=== PATIENT | female | born 1950 | race Caucasian/White ===

== ENCOUNTER 2018-03-02 14:13 | Emergency (ER) | payer MEDICARE, OTHER ==
[~2018-03-02] VITALS: Ht 160 cm; Wt 72.0 kg
[2018-03-02] MEDS ORDERED: LOSARTAN POT25 MG PO (14:29)
[2018-03-02] MEDS ORDERED: ALLOPURINOL300 MG PO (14:29)
[2018-03-02 15:28] VITALS: BP 139/87
[2018-03-02 15:39] LABS: URINE BILIRUBIN - DIPSTICK NEGATIVE (NEGATIVE); URINE BLOOD DIPSTICK NEGATIVE (NEGATIVE); URINE COLOR YELLOW; URINE GLUCOSE - DIPSTICK NEGATIVE (NEGATIVE); URINE KETONE TRACE mg/dL (NEGATIVE); URINE LEUK ESTERASE NEGATIVE (NEGATIVE); URINE NITRITE - DIPSTICK NEGATIVE (Negative); URINE PH 5.5 (4.5-8.0); URINE PROTEIN - DIPSTICK NEGATIVE (NEG-TRACE); URINE SPECIFIC GRAVITY >=1.030; URINE UROBILINOGEN - DIPSTICK 0.2 E.U./dL (0.2)
[2018-03-02 15:40] LABS: URINE CLARITY CLEAR
== END 2018-03-02 15:50 | disposition home or self-care (01) ==
LOC: ED 14:13
PROVIDERS: Family Medicine
DX: S20.212A Contusion of left front wall of thorax, initial encounter (principal); I10 Essential (primary) hypertension; M10.9 Gout, unspecified; G25.81 Restless legs syndrome; K21.9 Gastro-esophageal reflux disease without esophagitis; W01.198A Fall on same level from slipping, tripping and stumbling with subsequent striking against other object, initial encounter; Y93.K1 Activity, walking an animal; Y92.009 Unspecified place in unspecified non-institutional (private) residence as the place of occurrence of the external cause; Z98.84 Bariatric surgery status

== ENCOUNTER 2018-03-23 08:08 | Observation (INO) | payer MEDICARE, OTHER ==
[~2018-03-23] VITALS: Ht 160 cm; Wt 70.9 kg
[~2018-03-23 08:08] MED LIST: ALLOPURINOL300 MG PO; LOSARTAN POT25 MG PO
--- NOTE | 2018-03-23 08:22 | NUR ---
PT TO ROOM WITH A STEADY GAIT.
[2018-03-23] MEDS ORDERED: OMEPRAZOLE10 MG PO (08:23)
[2018-03-23] MEDS ORDERED: ROPINIROLE0.5 MG PO (08:24)
[2018-03-23] MEDS ORDERED: ADULT ASPIRIN E81 MG PO (08:24)
--- NOTE | 2018-03-23 08:25 | NUR ---
PT HAS BEEN TAKING IMMODIUM EVERY 6 HOURS. LAST DOSE WAS AT 0600 THIS AM.
[2018-03-23 09:13] LABS: HEMATOCRIT 42.6 % (37.0-47.0); HEMOGLOBIN 14.1 g/dl (12.0-16.0); IMMATURE GRANULOCYTES 0.4 % (0.0-5.0); MEAN CELL VOLUME 91.4 fL CALC (80.0-100.0); MEAN CORPUSCULAR HGB 30.3 pG CALC (26.0-32.0); MEAN CORPUSCULAR HGB CONC 33.1 g/L CALC (32.0-36.0); NEUT# 10.26 thou/uL (2.00-7.15); RED BLOOD COUNT 4.66 mill/uL (4.20-5.60)
--- NOTE | 2018-03-23 09:26 | NUR ---
PT WITH HOB ELEVATED, AIRWAY PATENT, RESP EVEN AND NON LABORED, SKIN P/W/D. ABD SOFT, TENDER, BS ACTIVE. IVF INFUSING WITHOUT DIFFICULTY, SITE WITHOUT REDNESS/SWELLING.
[2018-03-23 09:33] LABS: ALKALINE PHOSPHATASE 207 u/l (38-126); ANION GAP 17 (6-22 (CALC)); BILIRUBIN, TOTAL 0.7 mg/dL (0.0-1.4); BUN 20 mg/dL (8-23); BUN/CREATININE RATIO 30 (12-20 (CALC)); CARBON DIOXIDE 24 mmol/l (22-30); CHLORIDE 103 mmol/l (95-108); CREATININE 0.7 mg/dL (0.5-1.0); GFR > 60 ML/MIN (>=60 (CALC)); GFR FOR AFR.AMER. > 60 ML/MIN (>=60 (CALC)); LIPASE 59 u/l (23-300); POTASSIUM 3.8 mmol/l (3.5-5.1); SGOT/AST 31 u/l (9-36); SODIUM 140 mmol/l (137-146); TOTAL PROTEIN 7.2 g/dL (6.3-8.2)
[2018-03-23 10:11] LABS: C. DIFFICILE TOXIN A&B NEGATIVE (NEGATIVE)
--- NOTE | 2018-03-23 10:49 | NUR ---
oob to bsc to attempt to given urine specimen. Gait steady.
[2018-03-23 11:20] LABS: URINE BILIRUBIN - DIPSTICK NEGATIVE (NEGATIVE); URINE BLOOD DIPSTICK NEGATIVE (NEGATIVE); URINE COLOR YELLOW; URINE GLUCOSE - DIPSTICK NEGATIVE (NEGATIVE); URINE KETONE TRACE mg/dL (NEGATIVE); URINE LEUK ESTERASE TRACE (NEGATIVE); URINE PH 5.5 (4.5-8.0); URINE PROTEIN - DIPSTICK NEGATIVE (NEG-TRACE); URINE UROBILINOGEN - DIPSTICK 0.2 E.U./dL (0.2)
[2018-03-23 11:33] LABS: URINE CLARITY CLEAR; URINE NITRITE - DIPSTICK POSITIVE (Negative)
[2018-03-23 11:35] LABS: URINE BACTERIA FEW hpf; URINE HYALINE CAST FEW lpf (NONE-RARE); URINE SQUAMOUS EPITHELIAL CELL MODERATE EPI/hpf (0-FEW)
[2018-03-23 11:36] LABS: URINE MUCUS FEW hpf (NONE-FEW); URINE RBC 0-2 RBC/hpf (0-5)
--- NOTE | 2018-03-23 12:21 | NUR ---
CM discussed the admission status with Dr. Urias and after review of the chart advised observation. voiced agrement.
--- NOTE | 2018-03-23 13:24 | NUR ---
attempted to call report. receiving floor waiting for sbar information. SBAR faxed to floor at this time.
--- NOTE | 2018-03-23 13:46 | NUR ---
Admission Note Report Given to: Maggie HAM Transported by: x Wheelchair Stretcher Transported with: x Nurse Transporter Patent IV O2 Balance Staff Inspector pt leaves er via wc in stable condition.
--- NOTE | 2018-03-23 14:00 | NUR ---
PT ADMITTED TO MED SURG ROOM 269 VIA WHEELCHAIR FROM ER PT IS ALERT AND ORIENTED AND AMBULATES WITH STEADY GAIT, STOOD FROM WHEELCHAIR, ONTON SCALE THEN SITTING ON EDGE OF BED WITH STRONG STEADY GAIT, ADMISSION ASSESSMENT COMPLETED, PT CAM TO ER RELATED TO N/V AND FOUL LOOSE/WATERY YELLO/BENTLEY DIARRHEA SINCE WEDNESDAY, NAUSEA & VOMITING OCCURS WITH DIETARY INTAKE, PT HAS ABOVE DESCRUBED STOOL WITHIN MINUTES OF ARRIVAL TO UNIT (APPROX 75 CC), LUNGS ARE CLEAR ABD SOFT AND NON TENDER TO PALPATION, DENIES ANY PAIN. SKIN WARM DRY AND INTACT WITH NO BREAKDOWN NOTED. PT HAS 20G SALINE LOCK IN LEFT AC, ORIENTED TO ROOM UNIT AND CALL ROQUE SYSTEM WITH RETURN DEMONSTRATION, EDUCATED REGARDING NPO AND PLAN OF CARE, ALL QUESTIONS ANSWERED, SAFETY MEASURES INTRODUCED, CALL ROQUE WITHIN REACH, WILL CONTINUE TO MONITOR.
[2018-03-23 14:27] VITALS: BP 146/85
--- NOTE | 2018-03-23 15:40 | NUR ---
NOTIFIED VIA TELEPHONE OF CONSULT.
[2018-03-23 15:53] VITALS: BP 145/91
--- NOTE | 2018-03-23 16:15 | NUR ---
MEDICTAED WITH IV LOPRESSOR ORDERED MAINTENANCE FOR BP CONTROL, AND IVF STARTED AT PRESCRIBED RATE, CALL ROQUE WITHIN REACH, WILL CONTINUE TO MONITOR.
--- NOTE | 2018-03-23 17:37 | NUR ---
IVF CONTINUE ORDERED, OFFERS NO COMPLAINTS, OF PAIN, NPO STATUS MAINTAINED EXCEPT FEW ICE CHIPS OK PER VERBAL ORDER EARLIER, SAFETY MEASURES REINFORCED, WILL CONTINUE TO MONITOR.
[2018-03-23 17:45] VITALS: BP 127/84
--- NOTE | 2018-03-23 17:45 | NUR ---
REPEAT BP AFTER LOPRESSOR ADMIN 127/84
[2018-03-23 19:00] VITALS: BP 134/74
--- NOTE | 2018-03-23 19:39 | NUR ---
PATIENT RESTING IN BED AT THIS TIME WITH HOB ELEVATED. AWAKE ALERT AND ORIENTEDX3. IV SITE TO LEFT AC INTACT WITH IVF PATENT AND INFUSING AT 100CC/HR. SITE IS HEALTHY AT THIS TIME. PATIENT IS NPO AT THIS TIME. AWAITING SURGICAL CONSULT TOMMORROW. NO COMPLAINTS AT THIS TIME. SAFETY PRECAUTIONS REINFORCED. CALL LIGHT IN REACH. WILL CONT TO MONITOR.
--- NOTE | 2018-03-24 00:37 | NUR ---
APPEARS SLEEPING AT THIS TIME RESTING IN BED WITH EYES CLOSED. IVF PATENT AND INFUSING AT 100CC/HR VIA LEFT AC. CALL LIGHT IN REACH. WILL CONT TO MONITOR.
[2018-03-24 04:00] VITALS: BP 142/72
--- NOTE | 2018-03-24 04:48 | NUR ---
PATIENT RESTING IN BED WITH NO COMPLAINTS AT THIS TIME. REMAINS NPO WITH IVF LR PATENT AND INFUSING VIA LEFT AC AT 100CC/HR. SITE APPEARS HEALTHY AT THIS TIME. TOTAL URINE OUTPUT THIS SHIFT IS 1000CC OF YELLOW URINE. CALL LIGHT IN REACH. WILL CONT TO MONITOR.
[2018-03-24 05:44] LABS: HEMATOCRIT 34.7 % (37.0-47.0); HEMOGLOBIN 11.4 g/dl (12.0-16.0); IMMATURE GRANULOCYTES 0.3 % (0.0-5.0); MEAN CELL VOLUME 92.5 fL CALC (80.0-100.0); MEAN CORPUSCULAR HGB 30.4 pG CALC (26.0-32.0); MEAN CORPUSCULAR HGB CONC 32.9 g/L CALC (32.0-36.0); NEUT# 4.67 thou/uL (2.00-7.15); RED BLOOD COUNT 3.75 mill/uL (4.20-5.60); RED CELL DISTRI WIDTH 14.1 % (11.5-15.5)
[2018-03-24 05:47] LABS: ALKALINE PHOSPHATASE 142 u/l (38-126); ANION GAP 11 (6-22 (CALC)); BILIRUBIN, TOTAL 0.4 mg/dL (0.0-1.4); BUN 12 mg/dL (8-23); BUN/CREATININE RATIO 21 (12-20 (CALC)); CARBON DIOXIDE 26 mmol/l (22-30); CHLORIDE 107 mmol/l (95-108); CREATININE 0.6 mg/dL (0.5-1.0); GFR > 60 ML/MIN (>=60 (CALC)); GFR FOR AFR.AMER. > 60 ML/MIN (>=60 (CALC)); MAGNESIUM 1.1 mg/dL (1.6-2.3); POTASSIUM 3.7 mmol/l (3.5-5.1); SGOT/AST 21 u/l (9-36); SODIUM 141 mmol/l (137-146)
[2018-03-24 05:57] LABS: ALBUMIN 2.5 g/dL (3.2-5.0); TOTAL PROTEIN 5.1 g/dL (6.3-8.2)
--- NOTE | 2018-03-24 07:25 | NUR ---
REPORT RECIEVED FROM FATOUMATA PYLE. PT SITTING UP IN BED. NO S/S OF DISTRESS. PT DENIES ANY NEEDS AT THIS TIME. CALL LIGHT IN REACH. WILL CONTINUE TO MONITOR.
[2018-03-24 08:34] VITALS: BP 130/77
--- NOTE | 2018-03-24 08:34 | NUR ---
PT ASSESSMENT COMPLETE. PT A/O X3. SPEECH IS CLEAR. PT HAS SOME LT SIDED FACIAL DROOPING R/T PREVIOUS BOTOX INJECTIONS. RESP EVEN AND UNLABORED. LUNG SOUNDS CLEAR. LAST BM 03/23/18. BOWEL SOUNDS HYPOACTIVE X4. PT DENIES ANY N/V. STRONG RADIAL AND PEDAL PULSES. #20 LAC LR @100. IV SITE APPEARS HEALTHY. SKIN INTACT. PLAN OF CARE DISCUSSED. SAFETY PRECAUTIONS IN PLACE. CALL LIGHT IN REACH. WILL CONTINUE TO MONITOR.
--- NOTE | 2018-03-24 12:00 | NUR ---
PT SITTING ON SIDE OF BED. NO S/S OF DISTRESS. PT DENIES AND PAIN OR NEEDS AT THIS TIME. SPOUSE AT BEDSIDE. CALL LIGHT IN REACH. WILL CONTINUE TO MONITOR.
[2018-03-24 14:04] VITALS: BP 133/79
--- NOTE | 2018-03-24 16:00 | NUR ---
PT SITTING UP IN BED WATCHING TELEVISION. NO S/S OF DISTRESS. RESP EVEN AND UNLABORED. PT DENIES ANY PAIN OR NEEDS AT THIS TIME. CALL LIGHT IN REACH. WILL CONTINUE TO MONITOR.
[2018-03-24 16:05] VITALS: BP 158/82
[2018-03-24 19:00] VITALS: BP 135/76
--- NOTE | 2018-03-24 19:22 | NUR ---
BEDSIDE REPORT RECEIVED FROM OMKAR. PT IS UPRIGHT IN BED W/FAMILY AT BEDSIDE. DENIES ANY NEEDS AT THIS TIME. WILL FOLLOW-UP WITH ASSESSMENT AND MEDICATIONS ORDERED. CALL LIGHT AT BEDSIDE AND PT ENCOURAGED TO CALL NEEDS ARISE.
[2018-03-24 22:50] VITALS: BP 127/78
--- NOTE | 2018-03-24 23:00 | NUR ---
PT WAS SLEEPING I ENTERED THE ROOM. V/S ASSESSED AND MEDICATIONS ADMINISTERED ORDERED. ABD SOFT AND TENDER TO LOWER RIGHT QUAD., LUNG SOUNDS ARE CLEAR, PT LOCX3, DENIES PAIN/N/V AT THIS TIME. SKIN INTACT, APPEARANCE OF MILD PARALYSIS TO RIGHT SIDE OF FACE REPORTEDLY DUE TO RECENT BOTOX INJECTIONS, ALL OTHER NEURO'S APPEAR TO BE INTACT, NO S/S OF DISTRESS NOTED AT THIS TIME. WILL CONTINUE TO MONITOR. CALL LIGHT AT SIDE AND PT ENCOURAGED TO CALL NEEDS ARISE.
[2018-03-25] VITALS (10 sets, daily range): BP systolic 108–176; BP diastolic 70–83
--- NOTE | 2018-03-25 03:07 | NUR ---
PT IS IN RESTROOM WITH AIDE AT THIS TIME. REPORTING DIAHRREA. PT ASSISTED IN CLEANING UP AND ASSISTED W/MEENU-CARE. PT IS BACK TO BED. DENIES ANY OTHER NEEDS AT THIS TIME. CALL LIGHT W/IN REACH.
--- NOTE | 2018-03-25 05:10 | NUR ---
PT MEDICATED ORDERS PROVIDE AND IV FLUIDS REPLENISHED AT THIS TIME. PT REPORTED LOOSE BM/BROWN SOFT STOOL EMPTIED FROM TOILET. POC DISCUSSED AT LENGTH AT THIS TIME W/PT. PT LEFT SITTING ON SIDE OF BED W/LIGHTS AND TV ON. LAB JUST LEFT PT.
[2018-03-25 05:41] LABS: HEMOGLOBIN 12.2 g/dl (12.0-16.0); IMMATURE GRANULOCYTES 0.2 % (0.0-5.0); MEAN CELL VOLUME 91.6 fL CALC (80.0-100.0); MEAN CORPUSCULAR HGB 30.2 pG CALC (26.0-32.0); NEUT# 7.18 thou/uL (2.00-7.15); RED BLOOD COUNT 4.04 mill/uL (4.20-5.60); RED CELL DISTRI WIDTH 13.7 % (11.5-15.5)
[2018-03-25 06:01] LABS: ALBUMIN 2.9 g/dL (3.2-5.0); ALKALINE PHOSPHATASE 155 u/l (38-126); ANION GAP 12 (6-22 (CALC)); BILIRUBIN, TOTAL 0.4 mg/dL (0.0-1.4); BUN 8 mg/dL (8-23); BUN/CREATININE RATIO 15 (12-20 (CALC)); CARBON DIOXIDE 28 mmol/l (22-30); CHLORIDE 104 mmol/l (95-108); CREATININE 0.6 mg/dL (0.5-1.0); GFR > 60 ML/MIN (>=60 (CALC)); GFR FOR AFR.AMER. > 60 ML/MIN (>=60 (CALC)); POTASSIUM 3.7 mmol/l (3.5-5.1); SGOT/AST 26 u/l (9-36); SODIUM 139 mmol/l (137-146); TOTAL PROTEIN 5.7 g/dL (6.3-8.2)
[2018-03-25 06:02] LABS: MAGNESIUM 1.6 mg/dL (1.6-2.3)
--- NOTE | 2018-03-25 06:05 | NUR ---
PT OFF UNIT FLOOR ACCOMPANIED BY OR NURSE
--- NOTE | 2018-03-25 06:30 | NUR ---
PT RETURNED TO FLOOR IN STABLE CONDITION FROM CT.
--- NOTE | 2018-03-25 07:30 | NUR ---
REPORT RECEIVED, PT IN SURGERY FOR LAP MICHELLE WITH .
--- NOTE | 2018-03-25 10:30 | NUR ---
PT ARRIVED TO [facility]2 VIA STRETCHER ACCOMPANIED BY OR NURSE ZAHIRA. PT ALERT AND ORIENTED X3, VERY DROWSY, PT ABLE TO TRANSFER SELF FROM STRETCHER TO BED. DISCUSSED POC, SCD PLACED ON PT. IS AT BEDSIDE. DYNAMAP ATTATCHED TO PT FOR POST OP VITALS. X4 DRESSING TO ABD, SHADOWING NOTED TO UPPERMOST DRESSING, CDIX3. ASSESSMENT COMPLETED. CALL LIGHT IN REACH,CONTINUE TO MONITOR.
--- NOTE | 2018-03-25 12:00 | NUR ---
PT RESTING IN BED, MAUREEN CORRALES. PT C/O PAIN 03/23. PT MEDICATED PER AUG. TOLERATED WELL. CALL LIGHT IN REACH,CONTINUE TO MONITOR.
--- NOTE | 2018-03-25 16:00 | NUR ---
PT C/O PAIN MEDICATED PER AUG. CALL LIGHT IN REACH,CONTINUE TO MONITOR.
--- NOTE | 2018-03-25 20:00 | NUR ---
REPORT GIVEN BY LINO MONTEMAYOR. PATIENT ALERT AND AWAKE WATCHING TV. NO C/O OF PAIN AT THIS TIME. FALL PRECAUTIONS IN PLACE, PLAN OF CARE DISCUSSED, AND PATIENT INFORMED TO CALL WITH ANY QUESTIONS OR CONCERNS. RESP EVEN AND UNLABORED. NO S/S OF DISTRESS NOTED.
--- NOTE | 2018-03-25 23:40 | NUR ---
OLD IV SITE LEAKING. NEW IV STARTED 20 R FA.
--- NOTE | 2018-03-26 03:59 | NUR ---
PATIENT WALKED UP AND DOWN THE HALLWAYS DURING THE NIGHT. PATIENT TOLERATED THE WALKING WELL. PATIENT IS CURRENTLY IN THE BEDSIDE RECLINER WATCHING TV. RESP EVEN AND UNLABORED. NO S/S OF DISTRESS NOTED.
[2018-03-26 05:08] VITALS: BP 144/75
--- NOTE | 2018-03-26 07:30 | NUR ---
PT RESTING IN BED, STATING SHE SLEPT A LITTLE BUT NOT MUCH LAST PM, AM ASSESSMENT COMPLETED SEE INTERVENTIONS; SKIN WARN DRY AND INTACT; WITH DRESSINGS TO MTUIPLE SMALL ABD INCISIONS CLEAN DRY AND INTACT WITH NO SCANT NOTED, BS ACTIVE STATES PAIN CONTROLLED TODAY, 20G IV ACCESS INTACT IN R FA WITH IVF INFUSING AT PRESCRIBED RATE, SAFETY MEASURES REINFORCED CALL ROQUE WITHIN REACH, WILL CONTINUE TO MONITOR.
[2018-03-26 07:45] VITALS: BP 167/72
[2018-03-26 09:06] VITALS: BP 167/72
[2018-03-26 09:55] LABS: HEMATOCRIT 36.9 % (37.0-47.0); HEMOGLOBIN 12.1 g/dl (12.0-16.0); MEAN CELL VOLUME 91.3 fL CALC (80.0-100.0); MEAN CORPUSCULAR HGB CONC 32.8 g/L CALC (32.0-36.0); RED BLOOD COUNT 4.04 mill/uL (4.20-5.60)
[2018-03-26 10:03] LABS: ANION GAP 15 (6-22 (CALC)); BUN 12 mg/dL (8-23); BUN/CREATININE RATIO 19 (12-20 (CALC)); CARBON DIOXIDE 25 mmol/l (22-30); CHLORIDE 102 mmol/l (95-108); CREATININE 0.6 mg/dL (0.5-1.0); GFR > 60 ML/MIN (>=60 (CALC)); GFR FOR AFR.AMER. > 60 ML/MIN (>=60 (CALC)); POTASSIUM 4.4 mmol/l (3.5-5.1); SODIUM 137 mmol/l (137-146)
--- NOTE | 2018-03-26 10:04 | NUR ---
PT RESTING, IVF STOPPED PER VERBAL ORDER RAUL AT BEDSIDE PLANNED D/C LATER TODAY IF TOLERATING DIET WELL, OFFERS NO NEW COMPLAINTS, CALL ROQUE WITHIN REACH. WILL CONTINUE TO MONITOR.
--- NOTE | 2018-03-26 10:08 | NUR ---
AMBULATING IN HALLWAYS WITH STEADY GAIT. REQUESTING PAIN MEDICATION, WILL MEDICATE ORDERED.
--- NOTE | 2018-03-26 11:58 | NUR ---
AND RAUL FIGUEROA INTO SEE PATIENT, PLAN OF CARE DISCUSSED, CALL JUDE CASAS
[2018-03-26] MEDS ORDERED: LORTAB 1010 MG PO (12:15)
[2018-03-26] MEDS ORDERED: CIPRO XR500 MG PO (12:15)
--- NOTE | 2018-03-26 13:00 | NUR ---
PT MEDICATED FOR PAIN ORDERED, PLANNED D/C TODAY DAUGHTER AT BEDSIDE
--- NOTE | 2018-03-26 13:15 | NUR ---
Discharge instructions given. Patient verbalizes understanding of same. Discharged in stable condition via Wheelchair to Home with family. All belongings sent with pt. SCRIPTS FOR [facility] AND CIPRO SENT WITH PATIENT WELL
== END 2018-03-26 13:15 | disposition home or self-care (01) ==
LOC: ED 08:08 → ED-I 12:11 → ED 13:00 → MS2 13:01
PROVIDERS: Emergency Medicine; Nurse Practitioner Family; ADMIT Internal Medicine Nephrology; ATTEND Internal Medicine Nephrology
PROC: 0FT44ZZ Resection of Gallbladder, Percutaneous Endoscopic Approach (ICD-10-PCS; principal; 2018-03-25)
DX: K80.12 Calculus of gallbladder with acute and chronic cholecystitis without obstruction (principal); N39.0 Urinary tract infection, site not specified; I10 Essential (primary) hypertension; M10.9 Gout, unspecified; G25.81 Restless legs syndrome; K21.9 Gastro-esophageal reflux disease without esophagitis; K76.0 Fatty (change of) liver, not elsewhere classified; R19.7 Diarrhea, unspecified; E83.42 Hypomagnesemia; B96.20 Unspecified Escherichia coli [E. coli] as the cause of diseases classified elsewhere; Z91.041 Radiographic dye allergy status; Z98.84 Bariatric surgery status
CPT/HCPCS: Q9967; S0164

== ENCOUNTER → 2018-08-03 | Outpatient (REF) | payer MEDICARE, OTHER ==
[~2018-08-03] MED LIST changes: +ADULT ASPIRIN E81 MG PO; +CIPRO XR500 MG PO; +LORTAB 1010 MG PO; +OMEPRAZOLE10 MG PO; +ROPINIROLE0.5 MG PO
[2018-08-03 11:06] LABS: C. DIFFICILE TOXIN A&B NEGATIVE (NEGATIVE)
== END | disposition home or self-care (01) ==
LOC: LABSPEC 10:09
PROVIDERS: ATTEND Nurse Practitioner
DX: R19.7 Diarrhea, unspecified (principal)

== ENCOUNTER 2019-07-02 | Emergency (ER) | payer MEDICARE, OTHER ==
[2019-07-02 14:34] LABS: HEMATOCRIT 39.4 % (37.0-47.0); HEMOGLOBIN 12.5 g/dl (12.0-16.0); IMMATURE GRANULOCYTES 0.4 % (0.0-5.0); MEAN CELL VOLUME 92.9 fL CALC (80.0-100.0); MEAN CORPUSCULAR HGB 29.5 pG CALC (26.0-32.0); MEAN CORPUSCULAR HGB CONC 31.7 g/L CALC (32.0-36.0); NEUT# 9.33 thou/uL (2.00-7.15); RED BLOOD COUNT 4.24 mill/uL (4.20-5.60); RED CELL DISTRI WIDTH 14.2 % (11.5-15.5)
[2019-07-02 14:44] LABS: ANION GAP 13 (6-22 (CALC)); BUN 20 mg/dL (8-23); BUN/CREATININE RATIO 32 (12-20 (CALC)); CARBON DIOXIDE 24 mmol/l (22-30); CHLORIDE 102 mmol/l (95-108); CREATININE 0.6 mg/dL (0.5-1.0); GFR > 60 ML/MIN (>=60 (CALC)); GFR FOR AFR.AMER. > 60 ML/MIN (>=60 (CALC)); POTASSIUM 3.6 mmol/l (3.5-5.1); SODIUM 136 mmol/l (137-146)
[2019-07-02] MEDS ORDERED: CYCLOBENZAPR5 MG PO (14:55)
== END 2019-07-02 15:00 | disposition home or self-care (01) ==
PROVIDERS: Family Medicine
DX: R25.2 Cramp and spasm (principal); I10 Essential (primary) hypertension; G25.81 Restless legs syndrome; G51.39 Clonic hemifacial spasm, unspecified

== ENCOUNTER 2020-10-29 22:31 | Emergency (ER) | payer MEDICARE, OTHER ==
[~2020-10-29] VITALS: Ht 160 cm; Wt 66.0 kg
[~2020-10-29 22:31] MED LIST changes: +CYCLOBENZAPR5 MG PO
[2020-10-30] LABS: HEMATOCRIT 42.2 % (37.0-47.0); HEMOGLOBIN 13.2 g/dl (12.0-16.0); IMMATURE GRANULOCYTES 0.5 % (0.0-5.0); MEAN CELL VOLUME 91.9 fL CALC (80.0-100.0); MEAN CORPUSCULAR HGB 28.8 pG CALC (26.0-32.0); MEAN CORPUSCULAR HGB CONC 31.3 g/dL CAL (32.0-36.0); NEUT# 14.68 thou/uL (2.00-7.15); RED BLOOD COUNT 4.59 mill/uL (4.20-5.60); RED CELL DISTRI WIDTH 13.9 % (11.5-15.5)
[2020-10-30 00:23] LABS: ALKALINE PHOSPHATASE 155 u/l (38-126); AMYLASE 79 u/l (30-110); ANION GAP 13 (6-22 (CALC)); BUN 17 mg/dL (8-23); BUN/CREATININE RATIO 14 (12-20 (CALC)); CARBON DIOXIDE 25 mmol/l (22-30); CHLORIDE 105 mmol/l (95-108); CREATININE 1.2 mg/dL (0.5-1.0); GFR 44 ML/MIN (>=60 (CALC)); GFR FOR AFR.AMER. 54 ML/MIN (>=60 (CALC)); LIPASE 108 u/l (23-300); POTASSIUM 4.3 mmol/l (3.5-5.1); SGOT/AST 27 u/l (9-36); SODIUM 138 mmol/l (137-146)
[2020-10-30 00:25] LABS: ALBUMIN 4.2 g/dL (3.2-5.0); BILIRUBIN, TOTAL 0.7 mg/dL (0.0-1.4); TOTAL PROTEIN 7.7 g/dL (6.3-8.2)
[2020-10-30 00:34] LABS: MYOGLOBIN 168 ng/mL (0 - 62)
[2020-10-30] MEDS ORDERED: METRONIDAZOL500 MG PO (02:52)
[2020-10-30] MEDS ORDERED: CIPROFLOXACN500 MG PO (02:52)
[2020-10-30 03:46] VITALS: BP 129/61
== END 2020-10-30 04:07 | disposition home or self-care (01) ==
LOC: ED 22:31
PROVIDERS: Emergency Medicine
DX: K52.9 Noninfective gastroenteritis and colitis, unspecified (principal); I10 Essential (primary) hypertension; K21.9 Gastro-esophageal reflux disease without esophagitis; Z98.84 Bariatric surgery status; Z20.822 Contact with and (suspected) exposure to COVID-19
CPT/HCPCS: J1956

== ENCOUNTER 2022-01-14 17:51 | Observation (INO) | payer MEDICARE, OTHER ==
[2022-01-14] VITALS (12 sets, daily range): BP systolic 104–141; BP diastolic 59–102
[~2022-01-14] VITALS: Ht 160 cm; Wt 79.0 kg
[~2022-01-14 17:51] MED LIST changes: +CIPROFLOXACN500 MG PO; +METRONIDAZOL500 MG PO
[2022-01-14] MEDS ORDERED: OMEPRAZOLE DR40 MG PO (18:25)
[2022-01-14 18:27] LABS: HEMOGLOBIN 13.6 g/dl (12.0-16.0); IMMATURE GRANULOCYTES 0.3 % (0.0-5.0); MEAN CELL VOLUME 94.1 fL CALC (80.0-100.0); MEAN CORPUSCULAR HGB 28.8 pG CALC (26.0-32.0); MEAN CORPUSCULAR HGB CONC 30.6 g/dL CAL (32.0-36.0); NEUT# 14.46 thou/uL (2.00-7.15); RED BLOOD COUNT 4.72 mill/uL (4.20-5.60); RED CELL DISTRI WIDTH 15.3 % (11.5-15.5)
[2022-01-14 18:44] LABS: HEMATOCRIT 44.4 % (37.0-47.0)
[2022-01-14 18:56] LABS: ALKALINE PHOSPHATASE 125 u/l (38-126); BUN 13 mg/dL (8-23); BUN/CREATININE RATIO 14 (12-20 (CALC)); CARBON DIOXIDE 22 mmol/l (22-30); CHLORIDE 108 mmol/l (95-108); CREATININE 0.9 mg/dL (0.5-1.0); GFR FOR AFR.AMER. > 60 ML/MIN (>=60 (CALC)); GFR OTHER RACES > 60 ML/MIN (>=60 (CALC)); SGOT/AST 27 u/l (9-36); SODIUM 141 mmol/l (137-146); TOTAL PROTEIN 7.2 g/dL (6.3-8.2)
[2022-01-14 19:02] LABS: ANION GAP 14 (6-22 (CALC)); BILIRUBIN, TOTAL 0.2 mg/dL (0.0-1.4); POTASSIUM 3.1 mmol/l (3.5-5.1)
[2022-01-15 00:17] VITALS: BP 124/69
[2022-01-15 04:10] VITALS: BP 124/71
[2022-01-15 06:21] LABS: IMMATURE GRANULOCYTES 0.3 % (0.0-5.0); MEAN CORPUSCULAR HGB 29.7 pG CALC (26.0-32.0); MEAN CORPUSCULAR HGB CONC 31.3 g/dL CAL (32.0-36.0); NEUT# 5.36 thou/uL (2.00-7.15); RED BLOOD COUNT 3.77 mill/uL (4.20-5.60); RED CELL DISTRI WIDTH 15.1 % (11.5-15.5)
[2022-01-15 06:27] LABS: HEMATOCRIT 35.8 % (37.0-47.0); HEMOGLOBIN 11.2 g/dl (12.0-16.0)
[2022-01-15 06:50] LABS: ALKALINE PHOSPHATASE 82 u/l (38-126); BUN 15 mg/dL (8-23); BUN/CREATININE RATIO 24 (12-20 (CALC)); CARBON DIOXIDE 25 mmol/l (22-30); CHLORIDE 113 mmol/l (95-108); CREATININE 0.6 mg/dL (0.5-1.0); GFR FOR AFR.AMER. > 60 ML/MIN (>=60 (CALC)); GFR OTHER RACES > 60 ML/MIN (>=60 (CALC)); MAGNESIUM 1.8 mg/dL (1.6-2.3); SGOT/AST 20 u/l (9-36); SODIUM 142 mmol/l (137-146)
[2022-01-15 06:59] LABS: ALBUMIN 2.8 g/dL (3.2-5.0); ANION GAP 9 (6-22 (CALC)); BILIRUBIN, TOTAL 0.3 mg/dL (0.0-1.4); POTASSIUM 4.6 mmol/l (3.5-5.1); TOTAL PROTEIN 5.2 g/dL (6.3-8.2)
[2022-01-15 07:18] VITALS: BP 112/57
[2022-01-15] MEDS ORDERED: OMEPRAZOLE DR40 MG PO (07:20)
[2022-01-15 11:01] VITALS: BP 118/57
== END 2022-01-15 14:55 | disposition home or self-care (01) ==
LOC: ED 17:51 → ED-I 21:19 → ED 21:31 → MS2 21:32
PROVIDERS: Family Medicine; ADMIT Internal Medicine; ATTEND Internal Medicine
DX: K52.9 Noninfective gastroenteritis and colitis, unspecified (principal); I10 Essential (primary) hypertension; K21.9 Gastro-esophageal reflux disease without esophagitis; G25.81 Restless legs syndrome; M10.9 Gout, unspecified; Z98.84 Bariatric surgery status; Z20.822 Contact with and (suspected) exposure to COVID-19

== ENCOUNTER 2022-08-24 09:07 | Day surgery (SDC) | payer MEDICARE, OTHER ==
[~2022-08-24] VITALS: Ht 160 cm; Wt 68.0 kg
[~2022-08-24 09:07] MED LIST changes: +FOSAMAX PLUS PO; +OMEPRAZOLE DR40 MG PO; +OMEPRAZOLE20 MG PO; +QUESTRAN4 GM/DOSE PO
[2022-08-24 13:29] VITALS: BP 115/64
== END 2022-08-24 11:51 | disposition home or self-care (01) ==
LOC: ENDO 09:07 → ORM 09:50 → PO 11:00 → ORM 11:00 → PO 11:15 → ENDO 11:51
PROVIDERS: ATTEND Internal Medicine Gastroenterology
PROC: 0DBP8ZX Excision of Rectum, Via Natural or Artificial Opening Endoscopic, Diagnostic (ICD-10-PCS; principal; 2022-08-24)
PROC: 0DBE8ZX Excision of Large Intestine, Via Natural or Artificial Opening Endoscopic, Diagnostic (ICD-10-PCS; 2022-08-24)
PROC: 0DB58ZX Excision of Esophagus, Via Natural or Artificial Opening Endoscopic, Diagnostic (ICD-10-PCS; 2022-08-24)
PROC: 0DB78ZX Excision of Stomach, Pylorus, Via Natural or Artificial Opening Endoscopic, Diagnostic (ICD-10-PCS; 2022-08-24)
DX: K62.89 Other specified diseases of anus and rectum (principal); K57.30 Diverticulosis of large intestine without perforation or abscess without bleeding; K64.8 Other hemorrhoids; K29.50 Unspecified chronic gastritis without bleeding; K44.9 Diaphragmatic hernia without obstruction or gangrene; K21.00 Gastro-esophageal reflux disease with esophagitis, without bleeding; I10 Essential (primary) hypertension; E11.9 Type 2 diabetes mellitus without complications; Z98.84 Bariatric surgery status

== ENCOUNTER 2024-03-01 10:47 | Emergency (ER) | payer MEDICARE, OTHER ==
[2024-03-01] VITALS (13 sets, daily range): BP systolic 139–179; BP diastolic 79–124
[~2024-03-01] VITALS: Ht 160 cm; Wt 66.5 kg
[2024-03-01] MEDS ORDERED: MORPHINE SULFATE 4 MG/ML VIAL IV ONE ×2 (11:00→13:40)
[2024-03-01] MEDS ORDERED: ONDANSETRON HCl 4 MG/2 ML SDV IV ONE (11:00)
[2024-03-01 11:15] LABS: BASO% 0.2 % (0-3); EOS% 2.4 % (0-8); HEMOGLOBIN 12.7 g/dl (12.0-16.0); IMMATURE GRANULOCYTES 0.2 % (0.0-5.0); LYMPH% 23.4 % (15-41); MEAN CELL VOLUME 90.1 fL CALC (80.0-100.0); MEAN CORPUSCULAR HGB 28.6 pG CALC (26.0-32.0); MEAN CORPUSCULAR HGB CONC 31.8 g/dL CAL (32.0-36.0); MONO% 6.5 % (2-13); NEUT# 5.42 thou/uL (2.00-7.15); NEUT% 67.3 % (42-76); RED BLOOD COUNT 4.44 mill/uL (4.20-5.60); RED CELL DISTRI WIDTH 14.6 % (11.5-15.5)
[2024-03-01 11:30] LABS: ALBUMIN 4.1 g/dL (3.2-5.0); BILIRUBIN, TOTAL 0.7 mg/dL (0.02-1.3); CREATININE 0.7 mg/dL (0.5-1.0); TOTAL PROTEIN 7.1 g/dL (6.3-8.2)
== END 2024-03-01 13:55 | disposition short-term general hospital (02) ==
LOC: ED 10:47
PROVIDERS: Family Medicine
DX: S72.142A Displaced intertrochanteric fracture of left femur, initial encounter for closed fracture (principal); M10.9 Gout, unspecified; G25.81 Restless legs syndrome; I10 Essential (primary) hypertension; W01.0XXA Fall on same level from slipping, tripping and stumbling without subsequent striking against object, initial encounter; Y92.481 Parking lot as the place of occurrence of the external cause; Z72.0 Tobacco use; Z98.84 Bariatric surgery status

== ENCOUNTER 2024-03-23 14:20 | Emergency (ER) | payer MEDICARE, OTHER ==
[~2024-03-23] VITALS: Ht 160 cm; Wt 63.0 kg
[2024-03-23 14:47] VITALS: BP 143/70
[2024-03-23] MEDS ORDERED: CYCLOBENZAPRINE HCL 5 MG TAB PO ONE (14:55)
[2024-03-23] MEDS ORDERED: traMADol HCL 50 MG/TAB PO ONE ×2 (14:55→15:00)
[2024-03-23] MEDS ORDERED: ACETAMINOPHEN 500 MG TAB PO ONE ×2 (14:55→15:00)
[2024-03-23 15:00] VITALS: BP 126/63
[2024-03-23] MEDS ORDERED: DICLOFENAC SODIUM 75 MG/TAB PO ONE (15:00)
[2024-03-23 16:30] VITALS: BP 119/57
[2024-03-23] MEDS ORDERED: TORADOL PO (17:08)
[2024-03-23 17:11] VITALS: BP 119/57
[2024-03-25] MEDS ORDERED: TYLENOL500 MG PO (08:42)
[2024-03-25] MEDS ORDERED: ELIQUIS2.5 MG PO (08:44)
[2024-03-25] MEDS ORDERED: CALCIU XX (08:44)
[2024-03-25] MEDS ORDERED: B121000 MC1 (08:45)
[2024-03-25] MEDS ORDERED: METHOCARBAMOL750 MG PO (08:45)
[2024-03-25] MEDS ORDERED: OXYCODONE5 M1 PO (08:46)
[2024-03-25] MEDS ORDERED: KETOROLAC10 MG PO (08:46)
== END 2024-03-23 17:16 | disposition home or self-care (01) ==
LOC: ED 14:20
DX: G89.18 Other acute postprocedural pain (principal); M25.552 Pain in left hip; I10 Essential (primary) hypertension; Z72.0 Tobacco use

== ENCOUNTER 2024-07-10 07:00 | Day surgery (SDC) | payer MEDICARE, OTHER ==
[~2024-07-10] VITALS: Ht 160 cm; Wt 54.9 kg
[~2024-07-10 07:00] MED LIST changes: +ALLOPURINOL200 MG PO; +AMOX/K CLAV875 M1 PO; +B121000 MC1; +CALCIU XX; +ELIQUIS2.5 MG PO; +KETOROLAC10 MG PO; +LOSARTAN POTASS25 MG PO; +METHOCARBAMOL750 MG PO; +OXYCODONE5 M1 PO; +PANTOPRAZOLE SO40 M1 PO; +PREVACID30 M1 PO; +TORADOL PO; +TYLENOL500 MG PO
[2024-07-10] MEDS ORDERED: SODIUM CHLORIDE 0.9% 1,000 ML IV ONE (07:33)
[2024-07-10] MEDS ORDERED: FAMOTIDINE 10MG/ML 2ML SDV IV ONE (07:33)
[2024-07-10] MEDS ORDERED: PEPCID20 MG PO (09:41)
[2024-07-10 10:17] VITALS: BP 147/78
[2024-07-10] MEDS ORDERED: LIDOCAINE HCL 2% 2ML SDV IV ONE (12:53)
[2024-07-10] MEDS ORDERED: GLYCOPYRROLATE 0.2 MG/ML IV ONE (12:53)
[2024-07-10] MEDS ORDERED: PROPOFOL 200 MG/20 ML VIAL IV ONE (12:53)
== END 2024-07-10 10:50 | disposition home or self-care (01) ==
LOC: ENDO 07:00 → ORM 08:45 → ENDO 08:45
PROVIDERS: ATTEND Surgery
PROC: 0DJ08ZZ Inspection of Upper Intestinal Tract, Via Natural or Artificial Opening Endoscopic (ICD-10-PCS; principal; 2024-07-10)
DX: Z09 Encounter for follow-up examination after completed treatment for conditions other than malignant neoplasm (principal); K29.70 Gastritis, unspecified, without bleeding; I10 Essential (primary) hypertension; Z98.84 Bariatric surgery status; Z87.11 Personal history of peptic ulcer disease
CPT/HCPCS: J1596